=== PATIENT | male | born 1985 | race Caucasian/White ===

== ENCOUNTER 2019-09-30 18:30 | Emergency (ER) | payer MEDICAID, OTHER ==
[~2019-09-30] VITALS: Ht 177 cm; Wt 85.0 kg
[~2019-09-30 18:30] MED LIST: ACHD5005 PO
--- OUTSIDE RECORDS SUMMARY | 2019-09-30 18:35 | XMS REPORT ---
Author Author Moshe Resendiz Doctor Organization [facility] Address Unknown Phone Unavailable Care Team Providers Care Supervising Nurse Name Role Phone Migration, Doctor Unavailable Unavailable PROBLEMS Type Condition ICD9-CM Code [id number] Code Onset Dates Condition S tatus SNOMED Code Problem Plantar wart 078.12 Active [id number] ALLERGIES Substance Reaction Event Type Date Status Penicillins Unknown Non Drug Allergy Oct, Active ENCOUNTERS Encounter Location Date Diagnosis [facility] [address] [facility] [id number] [address] [place] [phone] May, Acute suppurative otitis med ia of right ear without spontaneous rupture of tympanic membrane, recurrence not specified H66.001 and Encounter for immunization Z23 [facility] [address] [facility] [id number] [address] [place] [phone] Oct, [facility] [address] [facility] [id number] [address] [place] [phone] Oct, [facility] [address] [facility] [id number] [address] [place] [phone] Apr, [facility] [address] [facility] [id number] [address] [place] [phone] Oct, [facility] [address] [facility] [id number] [address] [place] [phone] Sep, IMMUNIZATIONS No Known Immunizations SOCIAL HISTORY Never Assessed REASON FOR VISIT EMR-[facility] [place] PLAN OF CARE VITAL SIGNS MEDICATIONS Medication Instructions Dosage Frequency Start Date End Date Duration S tatus tramadol 50 mg take 1 tablet (50 mg ) by oral route every 6 hours as needed PRN pain Sep, Active Mabie 5-325 mg 1 Tablet by Oral route 4 times per day PRN pain Oct, Active RESULTS No Results PROCEDURES No Known procedures INSTRUCTIONS MEDICATIONS ADMINISTERED No Known Medications
--- OUTSIDE RECORDS SUMMARY | 2019-09-30 18:35 | XMS REPORT | Continuity of Care Document ---
Author Organization Unknown Address Unknown Phone Unavailable Allergies Active Description Code Type Severity Reaction Onset Reported/Identified Relationship to Patient Clinical Status Yes Penicillins Drug Allergy 10/08/2012 Yes Penicillins Drug Allergy N/A N/A 10/08/2012 Medications There is no data. Problems Date Dx Coded Attending Type Code Diagnosis Diagnosed By 10/08/2012 078.12 NURIA NTAR WART 10/08/2012 078.12 NURIA NTAR WART 10/08/2012 LEONILA DALLAS DDS 078.12 PLANTAR WART Procedures Code Description [place] [address] SKIN TISSUE PROCEDURE 11/03/2012 Results There is no data. Encounters ACCT No. Visit Date/Time Discharge Status Pt. Type Provider Facility Loc./Unit Complaint [id number] 02/08/2013 09:02:00 02/08/2013 23:59: 59 CLS Outpatient LEONILA DALLAS DDS [id number] 10/08/2012 10:37:00 10/08/2012 23:59: 59 CLS Outpatient [id number] 11/02/2012 12:24:00 Document Registration [id number] 06/01/2017 13:45:00 06/01/2017 23:59:5 9 CLS Outpatient EZEKIEL VINICIUS BOB [facility] [id number] 02/01/2013 10:56:00 013 23:59:59 CLS Outpatient
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
[2019-09-30 20:43] VITALS: BP 120/74
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
[2019-09-30] MEDS ORDERED: CYCL10TA9 PO (20:57)
[2019-09-30] MEDS ORDERED: CEPH500T PO (20:57)
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
== END 2019-09-30 21:08 | disposition home or self-care (01) ==
LOC: EDUNIT# 18:30 → ER 18:31
DX: S01.511A Laceration without foreign body of lip, initial encounter (principal); R22.0 Localized swelling, mass and lump, head; R40.2142 Coma scale, eyes open, spontaneous, at arrival to emergency department; R40.2252 Coma scale, best verbal response, oriented, at arrival to emergency department; R40.2362 Coma scale, best motor response, obeys commands, at arrival to emergency department; Z88.0 Allergy status to penicillin; V86.99XA Unspecified occupant of other special all-terrain or other off-road motor vehicle injured in nontraffic accident, initial encounter
CPT/HCPCS: 70450; 70486; 72070; 72100; 72125

== ENCOUNTER 2019-12-31 23:23 | Emergency (ER) | payer MEDICAID ==
[~2019-12-31] VITALS: Ht 180 cm; Wt 81.6 kg
[~2019-12-31 23:23] MED LIST changes: +CEPH500T PO; +CYCL10TA9 PO
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
[2019-12-31] MEDS ORDERED: RX-TRAMADOL 50 MG (ULTRAM) TAB PPK#4 PO STA (23:58)
[2020-01-01] MEDS ORDERED: TRAM-42 PO (00:02)
[2020-01-01 00:35] VITALS: BP 121/89
--- NOTE | 2020-01-01 05:51 | Diagnostic Imaging Report ---
EXAMINATION: Single frontal view of the right hand, with oblique and lateral views of the right 3rd digit. INDICATION: Right 3rd digit injury sustained after falling off of a rope swing. COMPARISON: None available. FINDINGS: There is a comminuted oblique fracture of the middle phalanx of the 3rd digit. There is mild dorsal displacement of the distal fracture fragment. Fracture lines that extend into the joint spaces. No other fracture is identified. No significant arthritic changes noted. Soft tissues are unremarkable. IMPRESSION: Comminuted mildly displaced fracture of the middle phalanx of the right 3rd digit. Dictated by: Dictated on workstation # [id number]
== END 2020-01-01 00:41 | disposition home or self-care (01) ==
LOC: EDUNIT# 23:23 → ER 23:25
DX: S62.622A Displaced fracture of middle phalanx of right middle finger, initial encounter for closed fracture (principal); Z88.0 Allergy status to penicillin; W23.0XXA Caught, crushed, jammed, or pinched between moving objects, initial encounter
CPT/HCPCS: 29130; 73140